=== PATIENT | male | born 2000 | race Two or more races ===

== ENCOUNTER 2024-02-17 08:57 | Emergency (ER) | payer BC, MEDICAID ==
[~2024-02-17] VITALS: Ht 172.7 cm; Wt 90.7 kg
[2024-02-17] MEDS ORDERED: KETOROLAC TROMETHAMINE 15 MG/ML VIAL ONE (09:48)
[2024-02-17] MEDS ORDERED: MORPHINE SULFATE INJ 4 MG/ML DISP.SYRIN ONE (09:48)
[2024-02-17] MEDS ORDERED: ONDANSETRON HCL/PF 4 MG/2 ML VIAL ONE (09:48)
[2024-02-17] MEDS: ONDANSETRON HCL/PF 4 MG/2 ML VIAL IVP ONE (10:00)
[2024-02-17] MEDS: MORPHINE SULFATE INJ 2 MG/ML DISP.SYRIN IV ONE (10:02)
[2024-02-17] MEDS: KETOROLAC TROMETHAMINE 15 MG/ML VIAL IV ONE (10:05)
[2024-02-17] MEDS ORDERED: NAPR-1164 PO (10:16)
[2024-02-17 10:31] VITALS: BP 126/67; TEMP 98.2; O2SAT 97
== END 2024-02-17 10:31 | disposition home or self-care (01) ==
LOC: ER 08:57
DX: S39.012A Strain of muscle, fascia and tendon of lower back, initial encounter (principal); X50.0XXA Overexertion from strenuous movement or load, initial encounter; Y93.89 Activity, other specified; Y92.89 Other specified places as the place of occurrence of the external cause; Y99.8 Other external cause status
CPT/HCPCS: 99284; 96374; 96375; J2270; J2405; J1885